=== PATIENT | female | born 1970 | race Two or more races ===

== ENCOUNTER → 2017-03-03 | Outpatient (CLI) | payer OTHER | END | disposition home or self-care (01) | LOC: MAMO-SONO 11:45 → SONOGRAMA 12:28 | DX: N93.9 Abnormal uterine and vaginal bleeding, unspecified (principal) ==

== ENCOUNTER 2017-08-08 07:09 | Day surgery (SDC) | payer OTHER ==
[~2017-08-08 07:09] MED LIST: LEVO-T25 MCG PO; ZANTAC150 MG PO; ZYRTEC10 M3 PO
[2017-08-08] MEDS ORDERED: LOVENOX30 MG/0.3 SUBCUTANEO (10:54)
[2017-08-08] MEDS ORDERED: TYLENOL EXTRA500 MG PO (10:55)
== END 2017-08-08 15:30 | disposition home or self-care (01) ==
LOC: CIR.AMB 07:09
DX: N84.0 Polyp of corpus uteri (principal)

== ENCOUNTER 2018-09-26 05:12 | Emergency (ER) | payer OTHER ==
[~2018-09-26] VITALS: Ht 160 cm; Wt 43.1 kg
[~2018-09-26 05:12] MED LIST changes: +LOVENOX30 MG/0.3 SUBCUTANEO; +TYLENOL EXTRA500 MG PO
== END 2018-09-26 14:42 | disposition home or self-care (01) ==
LOC: ER 05:12
DX: K52.9 Noninfective gastroenteritis and colitis, unspecified (principal); E86.0 Dehydration

== ENCOUNTER 2021-03-13 08:00 | Outpatient (CLI) | payer OTHER | END 2021-03-13 08:30 | disposition home or self-care (01) | LOC: PPH VACUNA 08:00 | PROVIDERS: ATTEND Emergency Medicine Pediatric Emergency Medicine | DX: Z23 Encounter for immunization (principal) ==

== ENCOUNTER 2022-06-10 09:05 | Outpatient (CLI) | payer OTHER | END 2022-06-10 09:07 | disposition home or self-care (01) | LOC: NUCLEAR 09:05 | PROVIDERS: ATTEND Internal Medicine Cardiovascular Disease | DX: I20.1 Angina pectoris with documented spasm (principal); I27.20 Pulmonary hypertension, unspecified ==